=== PATIENT | male | born 2005 | race Two or more races ===

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

== ENCOUNTER 2024-05-23 09:56 | Outpatient (OUT) | payer MEDICAID, SELFPAY ==
--- NOTE | 2024-05-23 | MR_ITS ---
The [address] [address] Patient Name: BENTON DIAS MRN: [id number] date: 2005 Sex: M Assigned Patient Location: MRI Current Patient Location: MRI Accession/Order Number: [id number] Exam Date: 05/23/2024 10:09 Report Date: 05/24/2024 14:58 At the request of: REGINO MEYER Procedure: MR shoulder LT wo con MRI OF THE LEFT SHOULDER WITHOUT CONTRAST DATE: 05/23/2024 10:09 AM EST HISTORY: 19 years Male Left shoulder pain COMPARISON: None. TECHNIQUE: Multiplanar multisequence MR images were obtained through the shoulder without the use of intravenous or intra-articular contrast utilizing standard institutional protocol. Limitations: The exam is suboptimal due to motion artifact. FINDINGS GLENOHUMERAL JOINT/CAPSULE/LABRAL COMPLEX: The glenoid cartilage and labrum are suboptimally evaluated due to motion artifact. The anterior superior margin appears to be irregular which may be due to motion artifact. LONG HEAD OF THE BICEPS: Not well visualized. CORACOACROMIAL ARCH EVALUATION AND IMPINGEMENT FACTORS: No acute process is seen. No fracture is seen. Questionable marginal spurring. ROTATOR CUFF: There is no evidence of muscular atrophy. There appears to be interstitial tearing of the supraspinatus which is seen best in the coronal sequence. There is questionable interstitial tear of the infraspinatus tendon. MARROW: There is no abnormal marrow signal intensity to indicate the presence of a fracture, contusion, avascular necrosis of the humeral head, or a diffuse infiltrative process. MISCELLANEOUS: There is no cyst or mass in the suprascapular notch or quadrilateral space. Normal appearance of the deltoid and trapezius muscles. Normal subcutaneous adipose space. MR/MR shoulder LT wo con IMPRESSION: 1. Very suboptimal exam due to motion artifact. 2. Questionable interstitial tear of the supraspinatus and infraspinatus tendons. Electronically authenticated by: JOAQUÍN VILLEGAS Date: 05/24/2024 14:58
--- OUTSIDE RECORDS SUMMARY | 2024-05-23 10:13 | XMS_ITS | CCD ---
Author Organization [facility] Care Team Providers [employer] Name Role Phone Tobi Iverson Attending Unavailable Tobi Iverson Attending Unavailable Tobi Iverson Attending Unavailable Tobi Iverson Attending Unavailable Allergies Allergy Classification Reported Allergen(s) Allergy Type Date of Onset Reaction(s) Facility (1 source) No Known Medication Allergies; Translations: [No Known Medication Allergies] Propensity to adverse reactions (disorder) [facility] Repository Results Test Name Value Interpretation Reference Range [facility] it Family Medicine Office/Clini c Noteon 04-25-2024 Family Medicine Office/Clinic Note Family Medicine Office/Clinic Note HPI Staff Benton is a 18 year old male presenting for left shoulder pain Had PT but isn't any better, helped in the beginning. Hasn't worsened, he has what he calls a tolerable pain History of Present Illness See staff HPI. Patient states the shoulder pain is still about a 5 out of 6. Reviewed PT's notes and that was where the patient's pain was at that time. Patient states he was afraid to get an MRI that is why he did not come back. Patient states that the pain is continuing and would like to do further workup. Patient also has a history of seasonal allergies. Patient had control with Flonase however patient stopped using it and would like to go back on it. Review of Systems PHQ Score Initial Depression Screen Score: 0 SCORE Physical Exam Vitals & Measurements T: 36.9 ???C(Temporal Artery) HR: 74(Peripheral) RR: 16 BP: 118/80 SpO2: 97% HT: 65 in HT: 165 cm WT: 79.7 kg WT: 175.708 lb BMI: 29.27 General: alert, no acute distress ENMT: oral mucosa moist, Cardiovascular: regular rate and rhythm, normal peripheral perfusion Respiratory: Lungs CTA, respirations non labored Extremities: no deformity, no trauma, Neurological: oriented x 4, LOC appropriate for age, CN II-XII intact, minimal weakness of the left shoulder compared to the right. Speech normal Abdomen: Soft, Nontender, Non-distended, + BS Assessment/Plan 1. Shoulder pain, left (M25.512: Pain in left shoulder) - Will order MRI today. - Will send to Ortho as well. Ordered: naproxen, 500 mg = 1 tab(s), Oral, BID, # 60 tab(s), Refills(s) 0, Pharmacy: [id number], 165, cm, 07/06/23 13:28:00 EST, Height/Length Dosing, 83.2, kg, 07/06/23 13:28:00 EST, Weight Dosing 2. Seasonal allergies (J30.2: Other seasonal allergic rhinitis) Will do Flonase at this time. 3. BMI 29.0-29.9,adult (Z68.29: Body mass index [BMI] 29.0-29.9, adult) BMI education added diet and exercise advised 4. Over weight (E66.3: Overweight) As above 5. Nonsmoker (Z78.9: Other specified health status) Please continue not to smoke Ordered: naproxen, 500 mg = 1 tab(s), Oral, BID, # 60 tab(s), Refills(s) 0, Pharmacy: [facility]/pharmacy #[id number], 165, cm, 07/06/23 13:28:00 EST, Height/Length Dosing, 83.2, kg, 07/06/23 13:28:00 EST, Weight Dosing Orders: fluticasone nasal, 1 spray(s), Nasal, BID, 16 gram, Refill(s) 0, each nostril, [facility]acy [id number], 165, cm, 04/25/24 11:53:00 EST, Height/Length Dosing, 79.7, kg, 04/25/24 11:53:00 EST, Weight Dosing Follow-up No qualifying data available Problem List/Past Medical History Ongoing Seasonal allergies Shoulder pain, left Historical No qualifying data Procedure/Surgical History Cryptorchidism. Medications Flonase 0.05 mg/inh [place], 1 spray(s), Nasal, BID Allergies No Known Medication Allergies Social History Alcohol - Denies Alcohol Use, 07/06/2023 Never., 04/25/2024 Substance Abuse - Denies Substance Abuse, 07/06/2023 Never., 04/25/2024 Tobacco Never (less than 100 in lifetime) Tobacco Use:., 04/25/2024 [facility] Comment on above: Result Comment: Elec tronically Signed By: Tobi Iverson MD\.br\Date and Time Signed: 04/25/24 12:04 EST Discharge Note - PTon 2023 Discharge Note - PT [id number] .00TIFF [facility] Ambulatory Visit Summaryon 0 09-14-2023 Ambulatory Visit Summary BENTON DIAS :2005 Visit Date:09/14/2023 Ambulatory Visit Instructions Your Diagnosis Shoulder pain, left BMI 29.0-29.9,adult Overweight Nonsmoker Your Care Team Attending Physician - Tobi Iverson MD Primary Care Physician - Tobi Iverson MD This Is Your Medications List melatonin naproxen (naproxen 500 mg oral enteric coated tablet) Procedures Performed Cryptorchidism. Discharge Vitals Temperature (Temporal Artery) 36.5 ?C Heart Rate (Peripheral) 72 Respiratory Rate 16 Blood Pressure 118/76 Height 165 cm Height 65 in Weight 79.5 kg Weight 174.9 lb BMI 29.2 Medications What How Much When Why Instructions Unchanged melatonin Unchanged naproxen (naproxen 500 mg oral enteric coated tablet) 1 Tablets By Mouth 2 times a day Shoulder pain, left BMI 30.0-30.9,adult Non-smoker Allergies No Known Medication Allergies Problems Ongoing - Any problem that you are currently receiving treatment for. Shoulder pain, left Patient Survey You may receive a survey via text or e-mail asking about your office visit. Please share your experience with us by completing your survey. We appreciate your feedback and thank you for choosing us for your care. [facility] Family Medicine Office/Clini c Noteon 09-14-2023 Family Medicine Office/Clinic Note HPI Staff Benton is a 18 year old male presenting for follow up left shoulder pain, to discuss next steps MARIXA ordered xray and PT, had the xray then did PT did get a therapy band to use Pain characteristics: Pain location: left shoulder Intensity:08/12 Onset: Apr 2023 Medication used: couple doses of naproxen questions/concerns: still has flare ups of pain History of Present Illness - Here for follow up. - See staff HPI. Review of Systems PHQ Score Initial Depression Screen Score: 0 SCORE Physical Exam Vitals & Measurements T: 36.5 ?C(Temporal Artery) HR: 72(Peripheral) RR: 16 BP: 118/76 SpO2: 98% HT: 65 in HT: 165 cm WT: 79.5 kg WT: 174.9 lb BMI: 29.2 General: alert, no acute distress ENMT: oral mucosa moist, Cardiovascular: regular rate and rhythm, normal peripheral perfusion Respiratory: Lungs CTA, respirations non labored Extremities: no deformity, no trauma, Pain in the L shoulder with raising over his head. FROM otherwise. Neurological: oriented x 4, LOC appropriate for age, CN II-XII intact, motor strength equal & normal bilaterally, speech normal Abdomen: Soft, Nontender, Non-distended, + BS Assessment/Plan 1. Shoulder pain, left (M25.512: Pain in left shoulder) - Still present, but improving. - Discussed further options with the patient. - Most likely Tendonitis. - With that, I recommend. NSAIDs or Steroids. - Discussed pros and cons of the meds. - Will call in steroids for him to use if needed Ordered: Body Mass Index (BMI) documented 3008F Current tobacco non-user 1036F Depression Screening Negative 3352F Most recent diastolic blood pressure <80 mm Hg 3078F Systolic BP <130 mm Hg (Most Recent) 3074F 2. BMI 29.0-29.9,adult (Z68.29: Body mass index [BMI] 29.0-29.9, adult) - BMI education given Ordered: Body Mass Index (BMI) documented 3008F Current tobacco non-user 1036F Depression Screening Negative 3352F Most recent diastolic blood pressure <80 mm Hg 3078F Systolic BP <130 mm Hg (Most Recent) 3074F 3. Overweight (E66.3: Overweight) - Diet and exercise advised Ordered: Body Mass Index (BMI) documented 3008F Current tobacco non-user 1036F Depression Screening Negative 3352F Most recent diastolic blood pressure <80 mm Hg 3078F Systolic BP <130 mm Hg (Most Recent) 3074F 4. Nonsmoker (Z78.9: Other specified health status) - Please continue to not smoke. Ordered: Body Mass Index (BMI) documented 3008F Current tobacco non-user 1036F Depression Screening Negative 3352F Most recent diastolic blood pressure <80 mm Hg 3078F Systolic BP <130 mm Hg (Most Recent) 3074F Orders: methylPREDNISolone, = 1 packet(s), Oral, As Directed, as directed on package labeling, X 6 day(s), # 21 tab(s), Refills(s) 0, Pharmacy: [id number], 165, cm, 09/14/23 9:47:00 EDT, Height/Length Dosing, 79.5, kg, 09/14/23 9:47:00 EDT, Weight Dosing Follow-up No qualifying data available Patient Education BMI for Adults Problem List/Past Medical History Ongoing Shoulder pain, left Historical No qualifying data Procedure/Surgical History Cryptorchidism. Medications Medrol 4 mg Tab, 1 packet(s), Oral, As Directed melatonin naproxen 500 mg oral enteric coated tablet, 500 mg= 1 tab(s), Oral, BID, Not taking Allergies No Known Medication Allergies Social History Alcohol - Denies Alcohol Use, 07/06/2023 Substance Abuse - Denies Substance Abuse, 07/06/2023 Tobacco Never (less than 100 in lifetime) Tobacco Use:., 09/14/2023 [facility] Comment on above: Result Comment: Elec tronically Signed By: Kishor QUILES, Tobi Pedro\.br\Date and Time Signed: 09/14/23 10:12 EDT Patient Educationon 09-14-19 Patient Education Nutrition BMI for Adults What is BMI? Body mass index (BMI) is a number that is calculated from a person's weight and height. BMI can help estimate how much of a person's weight is composed of fat. BMI does not measure body fat directly. Rather, it is an alternative to procedures that directly measure body fat, which can be difficult and expensive. BMI can help identify people who may be at higher risk for certain medical problems. What are BMI measurements used for? BMI is used as a screening tool to identify possible weight problems. It helps determine whether a person is obese, overweight, a healthy weight, or underweight. BMI is useful for: ? Identifying a weight problem that may be related to a medical condition or may increase the risk for medical problems. ? Promoting changes, such as changes in diet and exercise, to help reach a healthy weight. BMI screening can be repeated to see if these changes are working. How is BMI calculated? BMI involves measuring your weight in relation to your height. Both height and weight are measured, and the BMI is calculated from those numbers. This can be done either in [place] ([place] or metric measurements. Note that charts and online BMI calculators are available to help you find your BMI quickly and easily without having to do these calculations yourself. To calculate your BMI in [place] measurements: 1. Measure your weight in pounds (lb). 2. Multiply the number of pounds by 703. ? For example, for a person who weighs 180 lb, multiply that number by 703, which equals 126,540. 3. Measure your height in inches. Then multiply that number by itself to get a measurement called inches squared. ? For example, for a person who is 70 inches tall, the inches squared measurement is 70 inches x 70 inches, which equals 4,900 inches squared. 4. Divide the total from step 2 (number of lb x 703) by the total from step 3 (inches squared): 126,540 ? 4,900 = 25.8. This is your BMI. To calculate your BMI in metric measurements: 1. Measure your weight in kilograms (kg). 2. Measure your height in meters (m). Then multiply that number by itself to get a measurement called meters squared. ? For example, for a person who is 1.75 m tall, the meters squared measurement is 1.75 m x 1.75 m, which is equal to 3.1 meters squared. 3. Divide the number of kilograms (your weight) by the meters squared number. In this example: 70 ? 3.1 = 22.6. This is your BMI. What do the results mean? BMI charts are used to identify whether you are underweight, normal weight, overweight, or obese. The following guidelines will be used: ? Underweight: BMI less than 18.5. ? Normal weight: BMI between 18.5 and 24.9. ? Overweight: BMI between 25 and 29.9. ? Obese: BMI of 30 or above. Keep these notes in mind: ? Weight includes both fat and muscle, so someone with a muscular build, such as an athlete, may have a BMI that is higher than 24.9. In cases like these, BMI is not an accurate measure of body fat. ? To determine if excess body fat is the cause of a BMI of 25 or higher, further assessments may need to be done by a health care provider. ? BMI is usually interpreted in the same way for men and women. Where to find more information For more information about BMI, including tools to quickly calculate your BMI, go to these websites: ? Centers for Disease Control and Prevention: www.cdc.gov ? [place] Heart Association: www.heart.org ? National Heart, Lung, and Blood [place]: www.nhlbi.nih.gov Summary ? Body mass index (BMI) is a number that is calculated from a person's weight and height. ? BMI may help estimate how much of a person's weight is composed of fat. BMI can help identify those who may be at higher risk for certain medical problems. ? BMI can be measured using [place]ese measurements or metric measurements. ? BMI charts are used to identify whether you are underweight, normal weight, overweight, or obese. This information is not intended to replace advice given to you by your health care provider. Make sure you discuss any questions you have with your health care provider. Document Revised: 02/12/2020 Document Reviewed: 12/20/2019 [employer] Patient Education ? 2022 [employer]. [facility] Plan of Care - PT/OT/Speecho n 08-15-2023 Plan of Care - PT/OT/Speech [id number] .00TIFF [facility] Physician Referralon 024 Physician Referral [id number] .00TIFF [facility] Family Medicine Office/Clini c Noteon 07-12-2023 Family Medicine Office/Clinic Note HPI Staff Benton is a 18 year old male presenting to [facility] care Establish Care: History: Any previous diagnosis: History of seeing any specialist:no When was your last doctors visit: Last provider:none Any recent labs: no Health Maintenance UTD: Colonoscopy: not age appropriate PSA:no Acute: Current issues/complaints: left shoulder pain x2 months History of Present Illness Benton Dias is an 18-year-old male who presents today for an evaluation of left shoulder pain. He is accompanied by his father Benton Dias has been dealing with pain in his left shoulder since somewhere between the middle and end of 04/2023. He mentions that the pain started unexpectedly, likening it to the feeling of a heavy weight pressing down on him for an entire day. This discomfort persisted for several weeks. On a scale of 1 to 10, he rates his current pain level as 5 to 6. To manage the pain, he has been applying Aspercreme. He confirms that he has not taken any Motrin or Tylenol for relief. He is able to move his arm in all directions but states that he sometime he can that it moves from a certain area. He reports pain, particularly when moving upwards beyond a certain point. The pain intensifies with increased upward movement. He denies any medical issues. He states that he takes 5 mg of melatonin. He states that he moved here from [place] in 04/2023. He states that he graduated in 10/2022. He states that he is trying to find a job and get his license. He states that he would like to go to [employer]. Physical Exam Vitals & Measurements HR: 76(Peripheral) BP: 118/80 SpO2: 95% HT: 65 in HT: 165 cm WT: 83.2 kg WT: 183.04 lb BMI: 30.56 General: alert, no acute distress Cardiovascular: regular rate and rhythm, normal peripheral perfusion Respiratory: Lungs CTA, respirations non labored Extremities: no deformity, no trauma Neurological: oriented x 4, LOC appropriate for age, CN II-XII intact, motor strength equal & normal bilaterally, speech normal Musculoskeletal: The patient has decent range of motion except for left shoulder extension and elevation. Patient has pain when raising his arm above 180 degree. Assessment/Plan 1. Shoulder pain, left (M25.512: Pain in left shoulder) We will do an x-ray at this time to make sure the patient did not have any trauma to that area. We will start the patient on naproxen and we will do physical therapy. The patient will follow up in 3 months. 2. BMI 30.0-30.9,adult (Z68.30: Body mass index [BMI] 30.0-30.9, adult) BMI education given. 3. Non-smoker (Z78.9: Other specified health status) Please continue not to smoke. Portions of this record may have been created with voice recognition artificial intelligence software, specifically [employer], [employer] and or [employer]. Substitutions may have occurred due to the inherent limitations of voice recognition and artificial intelligence software. ATTESTATION: Documentation services were performed after patient or guardian consented to allow [employer] to record this visit. SELENA network management specialist and provider reviewed before signing. SELENA: Kanwal Isaac Follow-up No qualifying data available Patient Education BMI for Adults Problem List/Past Medical History Ongoing Shoulder pain, left Historical No qualifying data Procedure/Surgical History Cryptorchidism. Medications melatonin naproxen 500 mg oral enteric coated tablet, 500 mg= 1 tab(s), Oral, BID Allergies No Known Medication Allergies Social History Alcohol - Denies Alcohol Use, 07/06/2023 Substance Abuse - Denies Substance Abuse, 07/06/2023 Tobacco Never (less than 100 in lifetime) Tobacco Use:., 07/06/2023 [facility] Comment on above: Result Comment: Elec tronically Signed By: Tobi Iverson MD\.br\Date and Time Signed: 07/12/23 11:19 EST\.br\Electronically Co-Signed By: Kanwal Isaac\.br\Date and Time Co-Signed: 07/06/23 17:26 EST RAD - MISCon 07-12-2023 RAD - MISC [id number] .00TIFF [facility] Pre-Certification Formon Pre-Certification Form [id number] .00TIFF [facility] Physician Referralon 024 Physician Referral [id number] .00TIFF [facility] Ambulatory Visit Summaryon 0 07-06-2023 Ambulatory Visit Summary BENTON DIAS :2005 Visit Date:07/06/2023 Ambulatory Visit Instructions Your Diagnosis Shoulder pain, left BMI 30.0-30.9,adult Non-smoker Your Care Team Attending Physician - Tobi Iverson MD. Primary Care Physician - Tobi Iverson MD. This Is Your Medications List Contact prescribing physician if questions or concerns melatonin Procedures Performed Cryptorchidism. Discharge Vitals Heart Rate (Peripheral) 76 Blood Pressure 118/80 Height 165 cm Height 65 in Weight 83.2 kg Weight 183.04 lb BMI 30.56 What to do next Scheduled Follow-Up Appointments October. 2023 10:15 AM EDT With: Tobi Iverson MD Where: [facility] Stephane [facility] Patient Educationon 07-06-19 Patient Education Nutrition BMI for Adults What is BMI? Body mass index (BMI) is a number that is calculated from a person's weight and height. BMI can help estimate how much of a person's weight is composed of fat. BMI does not measure body fat directly. Rather, it is an alternative to procedures that directly measure body fat, which can be difficult and expensive. BMI can help identify people who may be at higher risk for certain medical problems. What are BMI measurements used for? BMI is used as a screening tool to identify possible weight problems. It helps determine whether a person is obese, overweight, a healthy weight, or underweight. BMI is useful for: ? Identifying a weight problem that may be related to a medical condition or may increase the risk for medical problems. ? Promoting changes, such as changes in diet and exercise, to help reach a healthy weight. BMI screening can be repeated to see if these changes are working. How is BMI calculated? BMI involves measuring your weight in relation to your height. Both height and weight are measured, and the BMI is calculated from those numbers. This can be done either in [place] or metric measurements. Note that charts and online BMI calculators are available to help you find your BMI quickly and easily without having to do these calculations yourself. To calculate your BMI in [place] ([place] measurements: 1. Measure your weight in pounds (lb). 2. Multiply the number of pounds by 703. ? For example, for a person who weighs 180 lb, multiply that number by 703, which equals 126,540. 3. Measure your height in inches. Then multiply that number by itself to get a measurement called inches squared. ? For example, for a person who is 70 inches tall, the inches squared measurement is 70 inches x 70 inches, which equals 4,900 inches squared. 4. Divide the total from step 2 (number of lb x 703) by the total from step 3 (inches squared): 126,540 ? 4,900 = 25.8. This is your BMI. To calculate your BMI in metric measurements: 1. Measure your weight in kilograms (kg). 2. Measure your height in meters (m). Then multiply that number by itself to get a measurement called meters squared. ? For example, for a person who is 1.75 m tall, the meters squared measurement is 1.75 m x 1.75 m, which is equal to 3.1 meters squared. 3. Divide the number of kilograms (your weight) by the meters squared number. In this example: 70 ? 3.1 = 22.6. This is your BMI. What do the results mean? BMI charts are used to identify whether you are underweight, normal weight, overweight, or obese. The following guidelines will be used: ? Underweight: BMI less than 18.5. ? Normal weight: BMI between 18.5 and 24.9. ? Overweight: BMI between 25 and 29.9. ? Obese: BMI of 30 or above. Keep these notes in mind: ? Weight includes both fat and muscle, so someone with a muscular build, such as an athlete, may have a BMI that is higher than 24.9. In cases like these, BMI is not an accurate measure of body fat. ? To determine if excess body fat is the cause of a BMI of 25 or higher, further assessments may need to be done by a health care provider. ? BMI is usually interpreted in the same way for men and women. Where to find more information For more information about BMI, including tools to quickly calculate your BMI, go to these websites: ? Centers for Disease Control and Prevention: www.cdc.gov ? [place] Heart Association: www.heart.org ? National Heart, Lung, and Blood [place]: www.nhlbi.nih.gov Summary ? Body mass index (BMI) is a number that is calculated from a person's weight and height. ? BMI may help estimate how much of a person's weight is composed of fat. BMI can help identify those who may be at higher risk for certain medical problems. ? BMI can be measured using [place]ese measurements or metric measurements. ? BMI charts are used to identify whether you are underweight, normal weight, overweight, or obese. This information is not intended to replace advice given to you by your health care provider. Make sure you discuss any questions you have with your health care provider. Document Revised: 02/12/2020 Document Reviewed: 12/20/2019 [employer] Patient Education ? 2022 [employer]. [facility] Physician Orderon 07-06-2023 Physician Order [id number] .00TIFF [facility] Vital Signs Date Time Vital Sign Value Performing Clinician Facility 07-27-2023 13:00-0500 Body height 168.91 cm [facility] 07-27-2023 13:00-0500 Body mass index (BMI) [Percentile] Per age and sex 91.8 % [facility] 07-27-2023 13:00-0500 Body mass index (BMI) [Ratio] 28.3 kg/m2 [facility] 07-27-2023 13:00-0500 Body temperature 102.1 [degF] [facility] 07-27-2023 13:00-0500 Body weight 80.73 kg [facility] 07-27-2023 13:00-0500 Heart rate 147 /min [facility] 07-27-2023 13:00-0500 Respiratory rate 18 /min [facility] 07-27-2023 13:00-0500 SaO2% (BldA) [Mass fraction] 95 % [facility] Encounters Encounter Date Encounter Type Care Provider Facility Start: 04-25-2024 End: 04-25-2024 christal Iverson Facility:[facility] Lyssa watt Start: 10-05-2023 ambulatory Tobi Iverson Facility :[facility] Stephane Start: 09-14-2023 End: 09-14-2023 ambulatory Tobi Iverson Facility:[facility] Start: 07-27-2023 End: 07-27-2023 ambulatory [facility] Work Phone: Start: 07-27-2023 End: 07-27-2023 Patient encounter procedure [facility] Work Phone: Start: 07-06-2023 End: 07-06-2023 ambulatory Tobi Iverson Facility:[facility] watt Start: 07-04-2023 ambulatory Tobi Iverson Facility:[facility] T Stephane Plan of Treatment Date Care Activity Detail Author [facility] Payers Date Payer Category Payer Medicaid [id number] 2004 Unknown [id number] 1970 Unknown [id number] 1970 Unknown [id number] 1970 Unknown [id number] Social History Date Type Detail Facility [facility] Work Phone: Start: 2005 Sex Assigned At Male F [facility] Evaluation note Note Date & Type Note Facility Evaluation note No assessment information availa ble [facility] Work Phone: Chief Complaint and Reason for Visit Chief Complaint body aches, fever, c ough Advance Directives No Advanced Directives Records Found Advance Directive Response Recorded Date/ Time Advance Directives No July 12:52pm Summary Purpose Family History No Family History Records Found Additional Source Comments Care Teams (unrecognized sec tion and content) Team Status: Active Member Role Status Dates NON STAFF Primary Care Provider Active Team Status: Inactive Member Role Status Dates NON STAFF Primary Care Provider Active Start: July 27, 2023 End: July 27, 2023 Fabi Merlos APRN Attending Provider Active Start: July 27, 2023 End: July 27, 2023 Goals (unrecognized section and content) Goals may be documented in a n alternate section (unrecognized sect ion and content) No Status Records Found INFORMATION SOURCE (unrecogn ized section and content) DATE CREATED AUTHOR 04/27/2024 [facility] FOR RECORDS PERTAINING TO PATIENTS WHO ARE OR HAVE BEEN ENROLLED IN A CHEMICAL DEPENDENCY/SUBSTANCEABUSE PROGRAM, SOME INFORMATION MAY BE OMITTED. This clinical summary was aggregated from multiple sources. Caution should be exercised in using it in the provision of clinical care. This summary normalizes information from multiple sources, and as a consequence, information in this document may materially change the coding, format and clinical context of patient data. In addition, data may be omitted in some cases. CLINICAL DECISIONS SHOULD BE BASED ON THE PRIMARY CLINICAL RECORDS. [facility]. provides no warranty or guarantee of the accuracy or completeness of information in this document.
== END 2024-05-23 09:57 | disposition home or self-care (01) ==
LOC: MRI 09:57
PROVIDERS: PCP Family Medicine; Visit Provider Family Medicine
DX: M25.512 Pain in left shoulder (principal)
CPT/HCPCS: 73221